=== PATIENT | female | born 1945 | race Caucasian/White ===

== ENCOUNTER 2019-05-01 09:25 | Emergency (ER) | payer MEDICARE, OTHER, SELFPAY ==
[2019-05-01 09:40] VITALS: BP 108/72; PULSE 105; RESP 20; TEMP 36.6; O2SAT 97; BMI 22.4
--- NOTE | 2019-05-01 12:07 | PC.NURSE ---
Attempt to assess pt, pt states she does not want to repeat herself. States multiple complaints. 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 States hurts to breathe, back pain, leg pain. multiple other complaints. Does not want me to look at areas or touch her. Waiting for Informed of wait for
--- NOTE | 2019-05-01 12:18 | ED_ITS ---
HPI - Extremity Problem General Chief complaint: Extremity Problem,Nontraumatic Stated complaint: sarcoma, anemic, cant sleep, back ache Time Seen by Provider: 05/01/19 11:16 Source: patient and family Mode of arrival: Wheelchair History of Present Illness HPI Narrative: Patient comes emergency department complaining of whole body pain that has been keeping her awake at night for the last several nights. 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 The patient states she has also had a nagging pain around her left scapular area. She states this has been intermittent for the last couple of months but has been stronger and more consistent for the last 3 weeks. Patient denies any fevers or chills. She denies any consistent cough and no sputum production. No shortness of breath. She denies vomiting but states she has a constant low level of nausea. However, she has been able to eat and drink. The patient states that she has had a ?sore? feeling in her left chest starting above her left breast and circling around laterally, for the last several days as well. Patient denies sick contacts. She is currently being treated with Opdivo and Yervoy and is followed at [facility] for her cancer care. Patient states that other than the cancer, which she has been dealing with for a couple of years, she is healthy. She states one of her concerns is that she has had a right-sided pleural effusion that has required thoracentesis and at 1 time, a Pleur-Evac. She states that since undergoing her cancer treatment, her lung metastases have resolved. Related Data Previous Rx's Medication Instructions Recorded hydromorphone [Dilaudid] 2 mg PO Q4-6H PRN #60 tab 05/01/19 Review of Systems Constitutional Constitutional: Denies chills, Denies fatigue, Denies fever(s), Denies frequent falls, Denies lethargy and Denies weakness Eyes Eyes: Denies change in vision, Denies eye discharge, Denies irritation and Denies loss of vision ENT Ears, Nose, Mouth, and Throat: Denies change in voice, Denies dizziness, Denies neck pain, Denies sore throat and Denies throat swelling Cardiovascular Cardiovascular: Denies chest pain, Denies irregular heart rhythm, Denies lightheadedness, Denies palpitations, Denies dyspnea, Denies dyspnea on exertion and Denies orthopnea Respiratory Respiratory: Denies cough, Denies dyspnea, Denies dyspnea on exertion and Denies wheezing Gastrointestinal Gastrointestinal: Denies abdominal pain, Denies change in bowel habits, Denies diarrhea, Denies nausea and Denies vomiting Genitourinary Genitourinary: Denies hematuria, Denies flank pain, Denies urinary incontinence and Denies urinary urgency Musculoskeletal Musculoskeletal: Denies back pain, Denies muscle weakness, Denies neck pain, Denies numbness and Denies tingling Integumentary/Breasts Skin/Breast: Denies pruritus, Denies erythema, Denies rash and Denies wounds Neurologic Neurologic: Denies behavioral changes, Denies confusion, Denies dizziness, Denies frequent falls, Denies loss of vision, Denies numbness, Denies tingling and Denies weakness Psychiatric Psychiatric: Denies anxiety, Denies behavioral changes, Denies confusion, Denies depression, Denies homicidal ideation and Denies suicidal ideation Endocrine Endocrine: Denies fatigue, Denies flushing and Denies palpitations Hematologic/Lymphatic Hematologic/Lymphatic: Denies easy bruising Allergic/Immunologic Allergic/Immunologic: Denies urticaria, Denies throat swelling and Denies wheezing Patient History Medical History (Updated 05/04/19 @ 11:17 by Angelique Peace MD) Anemia (Acute) Osteosarcoma (Acute) Social History Smoking Status: Never smoker Smoking Status: Never smoker Exam Initial Vital Signs Initial Vital Signs: Vital Signs Temperature 97.8 F 05/01/19 09:40 Pulse Rate 105 H 05/01/19 09:40 Respiratory Rate 20 05/01/19 09:40 Blood Pressure 108/72 05/01/19 09:40 Pulse Oximetry 97 05/01/19 09:40 Const General: cooperative and well developed Nutritional Appearance: well nourished [facility] Head: normocephalic and atraumatic Ears: external ears normal Nose: external nose normal and No nasal discharge Face and sinus: face symmetric and No dry mucous membranes Mouth: oral mucosae normal and moist mucous membranes Teeth and gingiva: dentition normal Eyes General: appearance normal, both eyes and all related structures Eyelids: eyelids normal Conjunctivae: conjunctivae normal Sclera: sclerae normal Pupils: PERRL EOM: EOM intact bilaterally Neck Neck: normal visual inspection, trachea midline, No lymphadenopathy, No midline deformity and No JVD Lymphatic: No lymphedema Chest Chest: normal inspection of the chest Resp Effort & Inspection: normal respiratory effort, able to speak in complete sentences, no respiratory distress and no use of accessory muscles Auscultation: clear to auscultation bilaterally, no rales, no rhonchi and no wheezes Cardio Rate: regular rate Rhythm: regular rhythm Heart Sounds: no click, no gallops, no murmurs and no rubs Pulses: normal peripheral pulses GI Inspection: non-distended Palpation: soft, no hepatosplenomegaly, No guarding, No pulsatile mass and No tender Auscultation: normal bowel sounds Back/Spine/Pelvis Back: No CVA tenderness Cervical Spine: cervical ROM normal and No pain with cervical ROM Thoracic/Lumbar Spine: thoracic and lumbar spine normal to inspection Skin General: no rashes or lesions noted, No jaundice and No petechiae Neuro General: alert, oriented x3, gait normal and no focal motor deficits Speech: speech normal Extrem General: full ROM, no clubbing, cyanosis or edema, no pedal edema and no calf tenderness Psych Appearance: well kempt Mental Status: mental status grossly normal Attitude: cooperative Thought Content: normal and suicidality Judgment: judgment good Course Course Course Narrative: Patient was worked up with labs, chest x-ray, and CT angiogram of the chest. She was not found to have any pneumonia or PE. We did not have a comparison study available, so in my discussion with the patient regarding her results, I did explain that I do not know what is a new finding and what is an old finding. However, the patient was found to have a 7 cm right hepatic lobe mass with neoplastic appearance which she was not aware of, as well as a cardiac masses verses intraluminal thrombus. ?Extensive? bilateral pulmonary nodules were also found, suggestive of metastatic disease. I did have the images pushed to [facility], as the patient has an appointment with her oncologist coming up in just a few days. I've advised her to discuss these findings with him. The patient was found to be feeling much more comfortable after administration of Dilaudid. I will give her oral Dilaudid to take at home, and we have discussed using her oxycodone for breakthrough pain. The patient is on anticoagulation for her DVT, and will most likely need an echo and follow up to further evaluate the issue of cardiac mass versus intraluminal thrombus. At this point in time patient stable for discharge home. We've discussed home management of symptoms, as well as the usual indications for return. Orders Ordered: Discontinued Medications Hydromorphone HCl (Dilaudid) 1 mg IV NOW ONE Stop: 05/01/19 13:04 Last Admin: 05/01/19 13:10 Dose: 1 mg Documented by: LUCAI Sodium Chloride (Normal Saline 0.9%) 1,000 mls @ 1,000 mls/hr IV BOLUS ONE Stop: 05/01/19 13:53 Last Infusion: 05/01/19 16:08 Dose: 0 mls/hr Documented by: Admin: 05/01/19 13:10 Dose: 1,000 mls/hr Documented by: LUCIA Vital Signs Vital signs: Vital Signs - 8 hr 05/01/19 09:40 Temperature 97.8 F Pulse Rate 105 H Respiratory Rate 20 Blood Pressure 108/72 Pulse Oximetry 97 MDM - Extremity (Nontraumatic) Medical Records Attestation: I reviewed the patient's medical records. Lab Data Attestation: I reviewed the patient's lab results. Result diagrams: 05/01/19 13:15 05/01/19 13:15 Labs: Lab Results 05/01/19 05/01/19 Range/Units 13:15 13:15 WBC 6.2 (4.5-11.0) X10^3/uL RBC 4.77 (4.0-5.2) X10^6/uL Hgb 11.7 L (12.0-16.0) g/dL Hct 36.3 (36-46) % MCV 76.0 L (80-100) fL MCH 24.5 L (26-34) PG MCHC 32.2 (30-36) % RDW 19.9 H (11.6-14.8) % Plt Count 195 (150-400) X10^3/uL Neut % (Auto) 80.2 H (50-75) % Lymph % (Auto) 9.9 L (25-40) % [place] % (Auto) 7.8 (3-14) % Eos % (Auto) 1.1 L (2-4) % Baso % (Auto) 1.0 (0-2) % Neut # (Auto) 4900 (7896-1158) /uL Lymph # (Auto) 600 L (6291-0541) /uL [place] # (Auto) 500 (0-900) /uL Eos # (Auto) 100 (0-450) /uL Baso # (Auto) 100 (0-100) /uL Sodium 129 L (137-145) mmol/L Potassium 4.5 (3.4-5.1) mmol/L Chloride 93 L (98-107) mmol/L Carbon Dioxide 26 (22-32) mmol/L BUN 9 (7-17) mg/dL Creatinine 0.60 (0.52-1.04) mg/dL Estimated GFR > 60.0 (>60) mL/min BUN/Creatinine Ratio 15.0 (6-22) Glucose 78 L (80-110) mg/dL Calcium 8.6 (8.4-10.2) mg/dL Total Bilirubin 0.6 (0.2-1.3) mg/dL AST 48 H (14-36) IU/L ALT 18 (<35) IU/L Alkaline Phosphatase 166 H (38-126) U/L Total Protein 6.4 (6.3-8.2) g/dL Albumin 3.4 L (3.5-5.0) g/dL Globulin 3.0 (1.7-4.1) g/dL Albumin/Globulin Ratio 1.1 (1.0-2.8) Imaging Data CT scan - chest: Radiologist's Impression: PROCEDURE: CT ANGIO CHEST PE PROTOCOL INDICATIONS: chest pain, cancer, known dvt TECHNIQUE: After the administration of intravenous contrast, 2 mm thick sections acquired from the pulmonary apices to the posterior costophrenic angles. 3-dimensional maximum intensity projection (MIP) coronal and sagittal reformats were then acquired through the thorax. For radiation dose reduction, the following was used: automated exposure contro l, adjustment of mA and/or kV according to patient size. COMPARISON: [facility], CR, XR CHEST 1V, 05/01/2019, 13:19. FINDINGS: Image quality: Diagnostic. Pulmonary arteries: The lungs are well aerated. There is no significant pulmonary consolidation, effusion, or pneumothorax. However, mild consolidation within the posterior costophrenic angles is identified. There is no lung mass. However, there is greater than 40 pulmonary nodules ranging in size from approximately 3-12 mm. T he largest is located within the left lower lobe (image 109, series 4). Lungs and pleura: Lungs are clear. No pleural effusions or pneumothorax. Central and peripheral airways are patent. Mediastinum: The heart is normal in size. There appears to be a very large mass involving the apex of the heart the abdominal pain is seen projecting into the right atrium that may measure up to approximately 4.2 x 7.8 x 6.2 cm (image 116, series 4). A small pericardial effusion is identified. No mediastinal or hilar adenopathy. However, multiple small mediastinal and hilar lymph nodes are evident. Thoracic aorta is normal in caliber and enhancement. Esophagus is normal in caliber, without hiatal hernia. Bones and chest wall: No definite suspicious bony lesions. Ribs and thoracic spine appear intact throughout. Age-appropriate degenerative changes of the spine are present. Thyroid gland is not enlarged or adequately evaluated. No axillary or supraclavicular adenopathy. Abdomen: The included portions of the upper abdomen demonstrate a large heterogeneous mass within it the right hepatic lobe that measures at least 6.8 x 7.7 cm. Bilateral adrenal masses are evident. There appear to be at least 2 masses on the left adrenal gland measuring up to 3.8 and 3.1 cm respectively. There also appears to be a prominent right adrenal mass that is not well characterized. The spleen is mildly enlarged. The common bile duct is prominent in size, but not adequately evaluated. IMPRESSION: 1. No evidence of pulmonary emboli. 2. Extensive bilateral pulmonary nodules with multiple small associated mediastinal and hilar lymph nodes are suggestive of metastatic disease to the chest. 3. Apparent cardiac mass predominantly seen within the right ventricle versus intraluminal thrombus. Echocardiogram is recommended for further evaluation. 4. 7 cm mass of the right hepatic lobe is suggestive of a neoplastic process and may be metastatic or represent a primary neoplasm. 5. Bilateral adrenal masses. 6. Enlarged spleen. 7. Enlarged common bile duct is not adequately evaluated on this exam, but probably related to prior cholecystectomy. 9. Mild consolidation within the posterior bilateral costophrenic angles probably is related to pulmonary nodules and associated atelectasis. Please correlate clinically to exclude pneumonia. Dictated by: Nilesh Padilla M.D. on 05/01/2019 at 13:35 Approved by: Nilesh Padilla M.D. on 05/01/2019 at 13:44 Chest x-ray: Attestation: I personally reviewed and interpreted this imaging study as follows: Radiologist's Impression: Discharge Plan Departure Patient Disposition: Home Clinical Impression: Neoplasm related pain (acute) (chronic) Anemia Qualifiers: Anemia type: unspecified type Qualified Code(s): D64.9 - Anemia, unspecified Discharge Date/Time: 05/01/19 17:22 Instructions: DI for Cancer Pain Syndromes, DI for Anemia of Chronic Disease Activity Restrictions/Additional Instructions: Your x-ray does not show pneumonia. Your CT scan shows a number of lymph nodes that are enlarged, as well as a liver lesion. As we do not have a comparison, it is not clear whether these lesions are new/increased in size, or old. As such, your images have been pushed to [facility] system, so that your oncologist can hopefully take a look at them when you see him on Thursday. If you call the office tomorrow and let them know that you have new images from today that have been pushed to the system, they may be able to pull the images up for your doctor before the appointment, so he can look at them prior to seeing you. Otherwise, your labs look fairly good. Your hemoglobin today is 11.7, which is only slightly below normal. Your hematocrit is 36.3. Your white blood cell count is normal, which is good. It is not clear why you've continued to have pain in your left back. Please take the new medication prescribed for pain and see if this gets you better relief, leading to better sleep. Prescriptions: New hydromorphone [Dilaudid] 2 mg tablet 2 mg PO Q4-6H PRN (Reason: pain) Qty: 60 RF: 0
--- NOTE | 2019-05-01 13:08 | DI.RAD.S_ITS ---
PROCEDURE: XR CHEST 1V INDICATIONS: chest pain, cancer TECHNIQUE: One view of the chest was acquired. COMPARISON: None. FINDINGS: Surgical changes and devices: None. Lungs and pleura: No large area of pulmonary consolidation is evident. There is no effusion or pneumothorax. Small rounded areas of increased attenuation are identified throughout both lungs. Mediastinum: Mediastinal contours appear normal. Heart size is mildly enlarged. There is aortic atherosclerosis. Bones and chest wall: No suspicious bony lesions. Overlying soft tissues appear unremarkable. IMPRESSION: 1. No acute cardiopulmonary process is evident. 2. Scattered bilateral pulmonary nodules are suspicious for metastatic disease. Please consider contrast enhanced CT of the chest for further evaluation. Dictated by: Nilesh Padilla M.D. on 05/01/2019 at 12:39 Approved by: Nilesh Padilla M.D. on 05/01/2019 at 12:40
[2019-05-01] MEDS: HYDROMORPHONE 1 MG INJ IV (13:10)
[2019-05-01] MEDS: SODIUM CHLORIDE 0.9% 1,000 ML 1000 ML IV (13:10)
[2019-05-01 13:27] LABS: Add Manual Diff / Slide Review NO; Basophils Absolute Auto 100 /uL (0-100); Eosinophils Absolute Auto 100 /uL (0-450); Eosinophils Percent Auto 1.1 % (2-4); Hematocrit 36.3 % (36-46); Hemoglobin 11.7 g/dL (12.0-16.0); Lymphocytes Absolute Auto 600 /uL (1100-4500); Lymphocytes Percent Auto 9.9 % (25-40); Mean Corpuscular HGB Conc 32.2 % (30-36); Mean Corpuscular Hemoglobin 24.5 PG (26-34); Monocytes Absolute Auto 500 /uL (0-900); Monocytes Percent Auto 7.8 % (3-14); Neutrophils Absolute Auto 4900 /uL (1500-7000); Neutrophils Percent Auto 80.2 % (50-75); Platelet Count 195 X10^3/uL (150-400); Red Blood Cell Count 4.77 X10^6/uL (4.0-5.2); Red Cell Distribution Width 19.9 % (11.6-14.8); White Blood Cell Count 6.2 X10^3/uL (4.5-11.0)
[2019-05-01 13:34] LABS: Alanine Aminotransferase 18 IU/L (<35); Albumin 3.4 g/dL (3.5-5.0); Albumin Globulin Ratio 1.1 (1.0-2.8); Alkaline Phosphatase 166 U/L (38-126); Aspartate Aminotransferase 48 IU/L (14-36); Bilirubin Total 0.6 mg/dL (0.2-1.3); Blood Urea Nitrogen 9 mg/dL (7-17); Calcium 8.6 mg/dL (8.4-10.2); Carbon Dioxide 26 mmol/L (22-32); Chloride 93 mmol/L (98-107); Estimated Glomerular Filt Rate > 60.0 mL/min (>60); Glucose 78 mg/dL (80-110); HEMOLYSIS < 15 (0-50); Potassium 4.5 mmol/L (3.4-5.1); Sodium 129 mmol/L (137-145); Total Protein 6.4 g/dL (6.3-8.2)
--- NOTE | 2019-05-01 14:11 | DI.CT.S_ITS ---
PROCEDURE: CT ANGIO CHEST PE PROTOCOL INDICATIONS: chest pain, cancer, known dvt TECHNIQUE: After the administration of intravenous contrast, 2 mm thick sections acquired from the pulmonary apices to the posterior costophrenic angles. 3-dimensional maximum intensity projection (MIP) coronal and sagittal reformats were then acquired through the thorax. For radiation dose reduction, the following was used: automated exposure control, adjustment of mA and/or kV according to patient size. COMPARISON: [facility], CR, XR CHEST 1V, 05/01/2019, 13:19. FINDINGS: Image quality: Diagnostic. Pulmonary arteries: The lungs are well aerated. There is no significant pulmonary consolidation, effusion, or pneumothorax. However, mild consolidation within the posterior costophrenic angles is identified. There is no lung mass. However, there is greater than 40 pulmonary nodules ranging in size from approximately 3-12 mm. The largest is located within the left lower lobe (image 109, series 4). Lungs and pleura: Lungs are clear. No pleural effusions or pneumothorax. Central and peripheral airways are patent. Mediastinum: The heart is normal in size. There appears to be a very large mass involving the apex of the heart the abdominal pain is seen projecting into the right atrium that may measure up to approximately 4.2 x 7.8 x 6.2 cm (image 116, series 4). A small pericardial effusion is identified. No mediastinal or hilar adenopathy. However, multiple small mediastinal and hilar lymph nodes are evident. Thoracic aorta is normal in caliber and enhancement. Esophagus is normal in caliber, without hiatal hernia. Bones and chest wall: No definite suspicious bony lesions. Ribs and thoracic spine appear intact throughout. Age-appropriate degenerative changes of the spine are present. Thyroid gland is not enlarged or adequately evaluated. No axillary or supraclavicular adenopathy. Abdomen: The included portions of the upper abdomen demonstrate a large heterogeneous mass within it the right hepatic lobe that measures at least 6.8 x 7.7 cm. Bilateral adrenal masses are evident. There appear to be at least 2 masses on the left adrenal gland measuring up to 3.8 and 3.1 cm respectively. There also appears to be a prominent right adrenal mass that is not well characterized. The spleen is mildly enlarged. The common bile duct is prominent in size, but not adequately evaluated. IMPRESSION: 1. No evidence of pulmonary emboli. 2. Extensive bilateral pulmonary nodules with multiple small associated mediastinal and hilar lymph nodes are suggestive of metastatic disease to the chest. 3. Apparent cardiac mass predominantly seen within the right ventricle versus intraluminal thrombus. Echocardiogram is recommended for further evaluation. 4. 7 cm mass of the right hepatic lobe is suggestive of a neoplastic process and may be metastatic or represent a primary neoplasm. 5. Bilateral adrenal masses. 6. Enlarged spleen. 7. Enlarged common bile duct is not adequately evaluated on this exam, but probably related to prior cholecystectomy. 9. Mild consolidation within the posterior bilateral costophrenic angles probably is related to pulmonary nodules and associated atelectasis. Please correlate clinically to exclude pneumonia. Dictated by: Nilesh Padilla M.D. on 05/01/2019 at 13:35 Approved by: Nilesh Padilla M.D. on 05/01/2019 at 13:44
[2019-05-01 14:37] VITALS: BP 106/58; PULSE 61
[2019-05-01 17:16] VITALS: BP 122/74
[2019-05-01 17:26] VITALS: PULSE 107; RESP 20; O2SAT 98
== END 2019-05-01 17:22 | disposition home or self-care (01) ==
PROVIDERS: Emergency Provider Emergency Medicine
DX: G89.3 Neoplasm related pain (acute) (chronic) (principal); D64.9 Anemia, unspecified; C41.9 Malignant neoplasm of bone and articular cartilage, unspecified
CPT/HCPCS: 36415; 71045; 71275; 80053; 85025; 96361; 96374; 99284; J1170; Q9967